=== PATIENT | female | born 2000 | race Caucasian/White ===

== ENCOUNTER 2024-04-12 12:59 | Outpatient (CLI) | payer BC ==
[2024-04-12 14:16] LABS: Hematocrit 41.6 % (34.9-44.5)
[2024-04-12 14:21] LABS: BHCG - Serum Negative (NEGATIVE); Pregs Control Background? CLEAR/WHITE (CLR/WHITE); Pregs Control Bar Appear? YES (CONTROL BAR)
== END 2024-04-12 13:00 | disposition home or self-care (01) ==
LOC: LABBT 12:59
PROVIDERS: ATTEND Otolaryngology Plastic Surgery within the Head & Neck
DX: Z01.812 Encounter for preprocedural laboratory examination (principal); J35.3 Hypertrophy of tonsils with hypertrophy of adenoids; G47.30 Sleep apnea, unspecified
CPT/HCPCS: 84703; 85014